=== PATIENT | female | born 1990 | race Hispanic/Latino ===

== ENCOUNTER 2017-03-11 20:06 | Observation (INO) | payer OTHER ==
[2017-03-11 20:13] VITALS: BP 118/82; PULSE 102; RESP 16; TEMP 97.8; O2SAT 98
--- NOTE | 2017-03-11 20:15 | ED PDOC ---
HPI: Abdomen Time Seen by Provider: 03/11/17 20:14 Chief Complaint (Nursing): Abdominal Pain Chief Complaint (Provider): abdominal pain History Per: Patient Additional Complaint(s): 26 year old female presents to ED with generalized abdominal pain nausea, vomiting and diarrhea that started shortly after she ate shrimp jimmie [facility]. Patient has had multiple episodes of vomiting and diarrhea and she states she cannot keep down any liquids or solids. Patient states abdominal pain is 8/10. Past Medical History Reviewed: Historical Data, Nursing Documentation, Vital Signs Vital Signs: Last Vital Signs Temp 97.8 F 03/11/17 20:11 Pulse 102 H 03/11/17 20:11 Resp 16 03/11/17 20:11 BP 118/82 03/11/17 20:11 Pulse Ox 98 03/12/17 04:29 - Medical History PMH: Asthma, Migraine - Surgical History Other surgeries: D&C - Family History Family History: States: CAD (mother ) - Living Arrangements Living Arrangements: With Family - Social History Current smoker - smoking cessation education provided: Yes Alcohol: Social Drugs: Denies - Home Medications Home Medications: Ambulatory Orders Medication Instructions Recorded Albuterol Sulfate [Albuterol Hfa] 0.09 mg IH PRN 11/24/14 MedroxyPROGESTERone [Depo-Provera] mg IM 11/24/14 Cyclobenzaprine [Flexeril] 5 mg PO BID #10 tab 12/10/16 Naproxen 500 mg PO BID #20 tab 12/10/16 Dicyclomine [Bentyl] 10 mg PO QID PRN #15 cap 03/12/17 Ondansetron [Zofran Odt] 4 mg PO ASDIR PRN #15 odt 03/12/17 - Allergies Allergies/Adverse Reactions: Allergies Allergy/AdvReac Type Severity Reaction Status Date / Time nifedipine Allergy SWELLING Verified 12/10/16 00:15 Review of Systems ROS Statement: Except As Marked, All Systems Reviewed And Found Negative Constitutional: Negative for: Fever, Chills Cardiovascular: Negative for: Chest Pain Respiratory: Negative for: Cough Gastrointestinal: Positive for: Nausea, Vomiting, Abdominal Pain, Diarrhea. Negative for: Constipation, Melena, Hematochezia, Hematemesis, Rectal Pain Genitourinary Female: Negative for: Dysuria Physical Exam - Reviewed Nursing Documentation Reviewed: Yes Vital Signs Reviewed: Yes - Physical Exam Appears: Positive for: Well, Non-toxic, No Acute Distress Skin: Negative for: Rash Eye Exam: Positive for: Normal appearance, EOMI, PERRL ENT: Positive for: Other (dry oral mucosa) Cardiovascular/Chest: Positive for: Regular Rate, Rhythm Respiratory: Positive for: Normal Breath Sounds Gastrointestinal/Abdominal: Positive for: Soft, Tenderness (diffuse tenderness in all 4 quadrants). Negative for: Distended, Guarding, Rebound Back: Negative for: L CVA Tenderness, R CVA Tenderness Extremity: Negative for: Pedal Edema Neurologic/Psych: Positive for: Alert, Oriented - Laboratory Results Result Diagrams: 03/11/17 21:40 03/11/17 21:40 Urine POC: Negative Urine dip results: Positive for: Blood. Negative for: Leukocyte Esterase, Nitrate, Ketones, Glucose, Bilirubin, Protein - ECG O2 Sat by Pulse Oximetry: 98 Pulse Ox Interpretation: Normal - Other Rad CT abd and pelvis with IV and oral contrast X-Ray: Read By Radiologist X-Ray Interpretation: see below TV US X-Ray: Read By Radiologist X-Ray Interpretation: see below Medical Decision Making Medical Decision Makin:30 - 26-year-old female with vomiting and diarrhea. Plan: CBC CMP Urine and dip Lipase IVF IV zofran IV toradol IV pepcid CT abd and pelvis with oral and IV contrast CT: FINDINGS: Lower thorax: Minimal atelectasis. Few subpleural pulmonary nodules and/or scarring, up to 0.3 cm. ABDOMEN: Liver: 1.0 x 1.1 x 1.1 cm enhancing lesion versus artifact within LEFT lobe. Gallbladder and bile ducts: No calcified stones. No ductal dilation. Pancreas: No ductal dilation. No mass. Spleen: No splenomegaly. Adrenals: No mass. Kidneys and ureters: No mass. No hydronephrosis. Stomach and bowel: Mild mural thickening versus underdistention of gastric antrum. No definite bowel wall thickening. No obstruction. Appendix: Normal caliber. No inflammation. PELVIS: Bladder: Unremarkable. Reproductive: 3.2 x 2.8 x 2.9 cm hypodense lesion within LEFT ovary. IUD with arms extending beyond margin of uterus. ABDOMEN and PELVIS: Intraperitoneal space: No significant fluid collection. No free air. Bones/joints: No acute fracture. Soft tissues: Tiny umbilical hernia containing fat. Vasculature: Unremarkable. No aneurysm. Lymph nodes: No pathologically enlarged lymph nodes. IMPRESSION: 1. IUD with perforation. 2. Probable LEFT ovarian cyst. Consider ultrasound. 3. Possible liver lesion. Recommend nonemergent MRI. 4. Pulmonary nodules. For low-risk patients, no follow-up is necessary. For high-risk patients (smoking history or other known risk factors) recommend CT at 12 months and if unchanged , no further follow-up. 5. Incidental/non-acute findings are described above. Thank you for allowing us to participate in the care of your patient. Patient feels much better after returning from CAT scan, she is tolerating ice chips and states that pain and nausea have resolved. Patient aware of above CT findings. Transvaginal ultrasound ordered for further evaluation of IUD. Patient states IUD was placed in July of [address] Mejia at [facility]. Since placement of IUD patient has not had any severe persistent pain although in the past 2 weeks she reports mild pelvic discomfort with vaginal spotting. She states she is not currently sexually active and has not been in over 1 year. Patient states she has not had regular menses for the past 5-6 years and she usually has intermittent spotting. She denies any profuse bleeding. US: FINDINGS: Uterus/cervix: Uterus measures 7.0 x 4.6 x 4.7 cm in size. No myometrial mass. Endometrium: 0.4 cm in thickness. IUD partially visualized within canal. Right ovary: 2.2 x 1.3 x 1.8 cm in size. No mass. Normal flow. Left ovary: 3.7 x 2.5 x 3.1 cm in size. 3.2 x 2.2 x 2.4 cm anechoic lesion. Normal flow. Free fluid: No significant free fluid. Bladder: Empty bladder which cannot be evaluated with this probe. IMPRESSION: 1. LEFT ovarian cyst. 2. IUD. See CT report. 3. Incidental/non-acute findings are described above. Above results were discussed with Dr. Jackson, CARDIOVASCULAR RN marine equipment preservation inspector who asked that CT and US are reviewed by v-rad again for clarification. I had extensive conversation with v-rad radiologist regarding read and relayed this information to Dr. Jackson. He states that since patient does not have any acute pain or distention, she can follow up as outpatient with her development technician. Upon re-examination of patient, abdomen remains non-tender, no rebound or guarding. Patient was advised to take tylenol pain and to follow up BEAU with her development technician. Copy of CT and US reports given to patient. Other incidental findings were also discussed with patient and she was instructed to follow up with PMD for these findings. Patient was able to tolerate juice and sandwich in ED with no further emesis. She states she feels better. Rx bentyl and zofran given. Advised fluids, rest and follow up with PMD in 1-2 days. Patient is aware she can RTED at any time if acutely worse. Disposition - Clinical Impression Clinical Impression: Gastroenteritis, IUD complication - Patient ED Disposition Is Patient to be Admitted: No Counseled Patient/Family Regarding: Studies Performed, Diagnosis, Need For Followup, Rx Given - Disposition Disposition: Routine/Home Disposition Time: 04:28 Condition: STABLE Results - Lab Results Lab Results: 03/11/17 03/11/17 21:40 21:40 WBC 21.0 H D RBC 4.80 Hgb 14.7 Hct 43.5 MCV 90.7 D MCH 30.6 MCHC 33.7 RDW 12.7 Plt Count 279 MPV 8.6 Neut % (Auto) 82.1 H Lymph % (Auto) 11.6 L [place] % (Auto) 5.8 Eos % (Auto) 0.3 Baso % (Auto) 0.2 Neut # 17.2 H Lymph # 2.4 [place] # 1.2 H Eos # 0.1 Baso # 0.0 Sodium 142 Potassium 3.5 L Chloride 106 Carbon Dioxide 23 Anion Gap 17 BUN 12 Creatinine 0.7 Est GFR ( Amer) > 60 Est GFR (Non-Af Amer) > 60 Random Glucose 88 Calcium 9.7 Total Bilirubin 0.6 AST 36 ALT 42 Alkaline Phosphatase 82 Total Protein 8.5 H Albumin 5.0 Globulin 3.5 Albumin/Globulin Ratio 1.4 Lipase 101
[2017-03-11] MEDS ORDERED: Sodium Chloride 0.9% 1,000 ML IV STA (20:31)
[2017-03-11 21:50] LABS: BASO % 0.2 % (0.0-2.0); EOS # 0.1 K/uL (0.0-0.7); EOS % 0.3 % (0.0-4.0); HEMATOCRIT 43.5 % (34.0-47.0); LYMPH # 2.4 K/uL (1.0-4.3); LYMPH % 11.6 % (20.0-40.0); MEAN CELL VOLUME 90.7 fl (81.0-99.0); MEAN CORPUSCULAR HEMOGLOBIN 30.6 pg (27.0-31.0); MEAN CORPUSCULAR HGB CONC 33.7 g/dL (33.0-37.0); MEAN PLATELET VOLUME 8.6 fl (7.2-11.7); MONO # 1.2 K/uL (0.0-0.8); MONO % 5.8 % (0.0-10.0); NEUT # 17.2 K/uL (1.8-7.0); NEUT % 82.1 % (50.0-75.0); RED CELL DISTRIBUTION WIDTH 12.7 % (11.5-14.5)
[2017-03-11 22:03] LABS: ALB/GLOB RATIO 1.4 (1.0-2.1); ALKALINE PHOSPHATASE 82 U/L (38-126); ALT/SGPT 42 U/L (9-52); AST/SGOT 36 U/L (14-36); BILIRUBIN,TOTAL 0.6 mg/dl (0.2-1.3); BLOOD UREA NITROGEN 12 mg/dl (7-17); CALCIUM 9.7 mg/dL (8.4-10.2); CARBON DIOXIDE 23 mmol/L (22-30); CHLORIDE 106 mmol/L (98-107); GFR AFRICAN-AMERICAN > 60; GLUCOSE,RANDOM 88 mg/dL (65-105); LIPASE 101 U/L (23-300); POTASSIUM 3.5 MMOL/L (3.6-5.0); SODIUM 142 mmol/l (132-148); TOTAL PROTEIN 8.5 G/DL (6.3-8.2)
[2017-03-11] MEDS ORDERED: Iohexol 240 (50 ml) PO STA (22:05)
[2017-03-11] MEDS ORDERED: Iohexol 240 (50 ml) ONE (22:11)
[2017-03-12] MEDS ORDERED: Sodium Chloride 0.9% 50 ML IV ONE (00:24)
[2017-03-12] MEDS ORDERED: Iohexol 300 50 ML ONE (00:24)
--- NOTE | 2017-03-12 01:30 | CT ---
EXAM: CT Abdomen and Pelvis With Intravenous Contrast CLINICAL HISTORY: 26 years old, female; Pain; Abdominal pain; Generalized; Additional info: Abdominal pain, vomiting, diarrhea TECHNIQUE: Axial computed tomography images of the abdomen and pelvis with intravenous contrast. This CT exam was performed using one or more of the following dose reduction techniques: automated exposure control, adjustment of the mA and/or kV according to patient size, and/or use of iterative reconstruction technique. Coronal and sagittal reformatted images were created and reviewed. CONTRAST: 94 mL of [id number] administered intravenously. COMPARISON: No relevant prior studies available. FINDINGS: Lower thorax: Minimal atelectasis. Few subpleural pulmonary nodules and/or scarring, up to 0.3 cm. ABDOMEN: Liver: 1.0 x 1.1 x 1.1 cm enhancing lesion versus artifact within LEFT lobe. Gallbladder and bile ducts: No calcified stones. No ductal dilation. Pancreas: No ductal dilation. No mass. Spleen: No splenomegaly. Adrenals: No mass. Kidneys and ureters: No mass. No hydronephrosis. Stomach and bowel: Mild mural thickening versus underdistention of gastric antrum. No definite bowel wall thickening. No obstruction. Appendix: Normal caliber. No inflammation. PELVIS: Bladder: Unremarkable. Reproductive: 3.2 x 2.8 x 2.9 cm hypodense lesion within LEFT ovary. IUD with arms extending beyond margin of uterus. ABDOMEN and PELVIS: Intraperitoneal space: No significant fluid collection. No free air. Bones/joints: No acute fracture. Soft tissues: Tiny umbilical hernia containing fat. Vasculature: Unremarkable. No aneurysm. Lymph nodes: No pathologically enlarged lymph nodes. IMPRESSION: 1. IUD with perforation. 2. Probable LEFT ovarian cyst. Consider ultrasound. 3. Possible liver lesion. Recommend nonemergent MRI. 4. Pulmonary nodules. For low-risk patients, no follow-up is necessary. For high-risk patients (smoking history or other known risk factors) recommend CT at 12 months and if unchanged, no further follow-up. 5. Incidental/non-acute findings are described above.
--- NOTE | 2017-03-12 03:19 | US ---
EXAM: US Pelvis, Transvaginal CLINICAL HISTORY: 26 years old, female; Screening exam; Assess iud TECHNIQUE: Real-time transvaginal pelvic ultrasound (complete) with image documentation. Transvaginal imaging was used for better evaluation of the endometrium and adnexa. COMPARISON: CT - ABD PELVIS PO IV CONTRAST 03/12/2017 12:41:10 AM FINDINGS: Uterus/cervix: Uterus measures 7.0 x 4.6 x 4.7 cm in size. No myometrial mass. Endometrium: 0.4 cm in thickness. IUD partially visualized within canal. Right ovary: 2.2 x 1.3 x 1.8 cm in size. No mass. Normal flow. Left ovary: 3.7 x 2.5 x 3.1 cm in size. 3.2 x 2.2 x 2.4 cm anechoic lesion. Normal flow. Free fluid: No significant free fluid. Bladder: Empty bladder which cannot be evaluated with this probe. IMPRESSION: 1. LEFT ovarian cyst. 2. IUD. See CT report. 3. Incidental/non-acute findings are described above.
== END 2017-03-12 04:58 | disposition home or self-care (01) ==
LOC: H.ER 20:06 → H.EROBSV 03-12 03:25
PROVIDERS: ADMIT Emergency Medicine; ATTEND Emergency Medicine
DX: K52.9 Noninfective gastroenteritis and colitis, unspecified (principal); F17.200 Nicotine dependence, unspecified, uncomplicated; J45.909 Unspecified asthma, uncomplicated; G43.909 Migraine, unspecified, not intractable, without status migrainosus; T83.9XXA Unspecified complication of genitourinary prosthetic device, implant and graft, initial encounter; Y83.1 Surgical operation with implant of artificial internal device as the cause of abnormal reaction of the patient, or of later complication, without mention of misadventure at the time of the procedure; N83.202 Unspecified ovarian cyst, left side

== ENCOUNTER 2017-03-13 11:06 | Observation (INO) | payer OTHER ==
[2017-03-13 11:34] VITALS: BMI 30.4
--- NOTE | 2017-03-13 11:37 | ED PDOC ---
HPI: Abdomen Time Seen by Provider: 03/13/17 11:19 Chief Complaint (Provider): Abdominal Pain History Per: Patient Additional Complaint(s): 26 yo female, No PMH, presents to ED with complaints of continued lower abdominal pain since Monday. Pt seen and evaluated here in the ED on 03/12 and was found to have an IUD with perforation. Pt was discharged in stable condition and was advised to follow up outpt OB. Pt tearful and upset, wants IUD removed. Pt contacted her OB, Dr. Restrepo, and was advised to return to ED at this time. Chart review from 03/12: CT: FINDINGS: Lower thorax: Minimal atelectasis. Few subpleural pulmonary nodules and/or scarring, up to 0.3 cm. ABDOMEN: Liver: 1.0 x 1.1 x 1.1 cm enhancing lesion versus artifact within LEFT lobe. Gallbladder and bile ducts: No calcified stones. No ductal dilation. Pancreas: No ductal dilation. No mass. Spleen: No splenomegaly. Adrenals: No mass. Kidneys and ureters: No mass. No hydronephrosis. Stomach and bowel: Mild mural thickening versus underdistention of gastric antrum. No definite bowel wall thickening. No obstruction. Appendix: Normal caliber. No inflammation. PELVIS: Bladder: Unremarkable. Reproductive: 3.2 x 2.8 x 2.9 cm hypodense lesion within LEFT ovary. IUD with arms extending beyond margin of uterus. ABDOMEN and PELVIS: Intraperitoneal space: No significant fluid collection. No free air. Bones/joints: No acute fracture. Soft tissues: Tiny umbilical hernia containing fat. Vasculature: Unremarkable. No aneurysm. Lymph nodes: No pathologically enlarged lymph nodes. IMPRESSION: 1. IUD with perforation. 2. Probable LEFT ovarian cyst. Consider ultrasound. 3. Possible liver lesion. Recommend nonemergent MRI. 4. Pulmonary nodules. For low-risk patients, no follow-up is necessary. For high-risk patients (smoking history or other known risk factors) recommend CT at 12 months and if unchanged , no further follow-up. 5. Incidental/non-acute findings are described above. Thank you for allowing us to participate in the care of your patient. Patient feels much better after returning from CAT scan, she is tolerating ice chips and states that pain and nausea have resolved. Patient aware of above CT findings. Transvaginal ultrasound ordered for further evaluation of IUD. Patient states IUD was placed in July of [address] Mejia at [facility]. Since placement of IUD patient has not had any severe persistent pain although in the past 2 weeks she reports mild pelvic discomfort with vaginal spotting. She states she is not currently sexually active and has not been in over 1 year. Patient states she has not had regular menses for the past 5-6 years and she usually has intermittent spotting. She denies any profuse bleeding. US: FINDINGS: Uterus/cervix: Uterus measures 7.0 x 4.6 x 4.7 cm in size. No myometrial mass. Endometrium: 0.4 cm in thickness. IUD partially visualized within canal. Right ovary: 2.2 x 1.3 x 1.8 cm in size. No mass. Normal flow. Left ovary: 3.7 x 2.5 x 3.1 cm in size. 3.2 x 2.2 x 2.4 cm anechoic lesion. Normal flow. Free fluid: No significant free fluid. Bladder: Empty bladder which cannot be evaluated with this probe. IMPRESSION: 1. LEFT ovarian cyst. 2. IUD. See CT report. 3. Incidental/non-acute findings are described above. Above results were discussed with Dr. Jackson, WRIST HEMMER refrigeration unit repairer who asked that CT and US are reviewed by v-rad again for clarification. I had extensive conversation with v-rad radiologist regarding read and relayed this information to Dr. aJckson. He states that since patient does not have any acute pain or distention, she can follow up as outpatient with her ornamental ironworker helper. Upon re-examination of patient, abdomen remains non-tender, no rebound or guarding. Patient was advised to take tylenol pain and to follow up BEAU with her ornamental ironworker helper. Copy of CT and US reports given to patient. Other incidental findings were also discussed with patient and she was instructed to follow up with PMD for these findings. Patient was able to tolerate juice and sandwich in ED with no further emesis. She states she feels better. Rx bentyl and zofran given. Advised fluids, rest and follow up with PMD in 1-2 days. Patient is aware she can RTED at any time if acutely worse. Past Medical History Reviewed: Nursing Documentation, Vital Signs Vital Signs: Last Vital Signs Temp 97 F L 03/13/17 11:39 Pulse 84 03/13/17 11:39 Resp 18 03/13/17 11:39 BP 139/83 03/13/17 11:39 Pulse Ox 100 03/13/17 11:39 - Medical History PMH: Asthma, Migraine - Surgical History Surgical History: No Surg Hx - Family History Family History: States: CAD (mother ) - Living Arrangements Living Arrangements: With Family - Social History Current smoker - smoking cessation education provided: No Alcohol: None Drugs: Denies - Home Medications Home Medications: Ambulatory Orders Medication Instructions Recorded Albuterol Sulfate [Albuterol Hfa] 0.09 mg IH PRN 11/24/14 MedroxyPROGESTERone [Depo-Provera] mg IM 11/24/14 Cyclobenzaprine [Flexeril] 5 mg PO BID #10 tab 12/10/16 Naproxen 500 mg PO BID #20 tab 12/10/16 Dicyclomine [Bentyl] 10 mg PO QID PRN #15 cap 03/12/17 Ondansetron [Zofran Odt] 4 mg PO ASDIR PRN #15 odt 03/12/17 - Allergies Allergies/Adverse Reactions: Allergies Allergy/AdvReac Type Severity Reaction Status Date / Time nifedipine Allergy SWELLING Verified 03/13/17 11:36 Review of Systems ROS Statement: Except As Marked, All Systems Reviewed And Found Negative Gastrointestinal: Positive for: Abdominal Pain Physical Exam - Reviewed Nursing Documentation Reviewed: Yes Vital Signs Reviewed: Yes - Physical Exam Appears: Positive for: Well, Non-toxic, No Acute Distress Head Exam: Positive for: ATRAUMATIC, NORMAL INSPECTION, NORMOCEPHALIC Skin: Positive for: Normal Color, Warm, DRY Eye Exam: Positive for: EOMI, Normal appearance, PERRL ENT: Positive for: Normal ENT Inspection Neck: Positive for: Normal, Painless ROM Cardiovascular/Chest: Positive for: Regular Rate, Rhythm Respiratory: Positive for: CNT, Normal Breath Sounds Gastrointestinal/Abdominal: Positive for: Normal Exam, Bowel Sounds, Soft Back: Positive for: Normal Inspection Extremity: Positive for: Normal ROM Neurologic/Psych: Positive for: Alert, Oriented - Laboratory Results Result Diagrams: 03/13/17 12:00 03/13/17 12:00 Medical Decision Making Medical Decision Making: Case discussed with Dr. Mjeia who presented to see and evaluate pt at bedside. Obs-MS arranged at this time. Pt to likely go to OR later today. Pt last ate around 9-10 am, a bagel and soda. Disposition - Clinical Impression Clinical Impression: IUD complication - Patient ED Disposition Is Patient to be Admitted: Yes - Disposition Disposition Time: 12:43 Condition: STABLE - Pt Status Changed To: Hospital Disposition Of: Observation - POA Present On Arrival: None
[2017-03-13 11:58] LABS: URINE BACTERIA OCC (<OCC); URINE BILIRUBIN NEGATIVE (NEGATIVE); URINE COLOR AMBER (YELLOW); URINE GLUCOSE (UA) NEG (Normal); URINE KETONE NEGATIVE (NEGATIVE); URINE LEUKOCYTE ESTERASE MOD Leu/uL (Negative); URINE PROTEIN 30 mg/dL (NEGATIVE); URINE UROBILINOGEN 0.2-1.0 mg/dL (0.2-1.0); WBC URINE 7 /hpf (0-5)
[2017-03-13 11:59] LABS: URINE BLOOD TRACE (NEGATIVE)
[2017-03-13 12:13] LABS: BASO # 0.1 K/uL (0.0-0.2); BASO % 1.3 % (0.0-2.0); EOS # 0.1 K/uL (0.0-0.7); EOS % 1.2 % (0.0-4.0); HEMATOCRIT 38.9 % (34.0-47.0); LYMPH # 2.5 K/uL (1.0-4.3); LYMPH % 26.6 % (20.0-40.0); MEAN CELL VOLUME 91.2 fl (81.0-99.0); MEAN CORPUSCULAR HEMOGLOBIN 30.8 pg (27.0-31.0); MEAN CORPUSCULAR HGB CONC 33.8 g/dL (33.0-37.0); MEAN PLATELET VOLUME 7.9 fl (7.2-11.7); MONO # 0.8 K/uL (0.0-0.8); MONO % 8.1 % (0.0-10.0); NEUT # 5.8 K/uL (1.8-7.0); NEUT % 62.8 % (50.0-75.0); RED CELL DISTRIBUTION WIDTH 12.7 % (11.5-14.5); WHITE BLOOD COUNT 9.2 K/uL (4.8-10.8)
[2017-03-13 12:22] LABS: ALB/GLOB RATIO 1.5 (1.0-2.1); ALKALINE PHOSPHATASE 72 U/L (38-126); ALT/SGPT 37 U/L (9-52); AST/SGOT 26 U/L (14-36); BILIRUBIN,TOTAL 0.5 mg/dl (0.2-1.3); BLOOD UREA NITROGEN 6 mg/dl (7-17); CALCIUM 8.7 mg/dL (8.4-10.2); CARBON DIOXIDE 25 mmol/L (22-30); CHLORIDE 105 mmol/L (98-107); GFR AFRICAN-AMERICAN > 60; GLUCOSE,RANDOM 87 mg/dL (65-105); POTASSIUM 3.5 MMOL/L (3.6-5.0); SODIUM 140 mmol/l (132-148); TOTAL PROTEIN 7.5 G/DL (6.3-8.2)
[2017-03-13] MEDS ORDERED: Lactated Ringer's 1,000 ML IV SCH (13:00)
--- NOTE | 2017-03-13 14:59 | CP.SDSHP ---
Same Day Surgery H & P - History Proposed Procedure: hysteroscopy and diagnostic laparoscopy for removal of IUD Pre-Op Diagnosis: perforated/embedded IUD - Allergies Allergies: Allergies nifedipine Allergy (Verified 03/13/17 11:36) SWELLING - Physical Exam Vital Signs: Vital Signs 03/13/17 03/13/17 13:38 14:20 Temperature 97.9 F Pulse Rate 80 64 Respiratory 18 Rate Blood Pressure 122/78 O2 Sat by Pulse 100 Oximetry Neuro: WNL Heart: WNL Lungs: WNL - {Optional Preform as Required} Abdomen: WNL COOK FISH EGGS: WNL - Impression Pt. Evaluated Today:Candidate for Anesthesia & Procedure: Yes - Date & Time Date: 03/13/17 Time: 14:59 Short Stay Discharge - Short Stay Discharge Admitting Diagnosis/Reason for Visit: IUD REMOVAL Disposition: HOME/ ROUTINE Follow-up: f/u in the office in 1-2 wks
[2017-03-13] MEDS ORDERED: Strong Iodine Topical Sol. 5%-10% ONE (15:02)
[2017-03-13] MEDS ORDERED: Ferric Subsulfate Sol(60 mL) ONE (15:02)
[2017-03-13] MEDS ORDERED: Propofol 10 mg/ml Inj (20 ML) ONE (15:09)
[2017-03-13] MEDS ORDERED: Midazolam 2 MG/2 ML VIAL ONE (15:09)
[2017-03-13] MEDS ORDERED: Lidocaine 4% (Laryng-O-Jet) Kit MM ONE (15:09)
[2017-03-13] MEDS ORDERED: Succinylcholine 200 mg/10 ml Inj IV ONE (15:09)
[2017-03-13] MEDS ORDERED: Lidocaine 1% Inj (20ml) ONE (15:10)
[2017-03-13] MEDS ORDERED: Bupivacaine 0.5% Inj(30mL) ONE (15:10)
[2017-03-13] MEDS ORDERED: Rocuronium 10 mg/ml (5 ml) ONE (15:10)
[2017-03-13] MEDS ORDERED: Lactated Ringer's 1,000 ML IV ONE (15:37)
[2017-03-13] MEDS ORDERED: Doxycycline 100 mg Inj IVPB ONE (15:50)
[2017-03-13] MEDS ORDERED: Neostigmine Methylsulfate 3mg/3ml Syringe IV ONE (16:04)
[2017-03-13] MEDS ORDERED: HYDROmorphone 0.5 mg/0.5 ml ISec IVP PRN (16:27)
[2017-03-13] MEDS ORDERED: Oxycodone/Acetaminophen 5/325 mg Tab PO PRN (16:39)
[2017-03-13 18:30] LABS: HEMATOCRIT 35.9 % (34.0-47.0)
[2017-03-13 19:50] VITALS: BP 130/67; PULSE 79; RESP 18; TEMP 98.1; O2SAT 96
--- NOTE | 2017-03-17 14:00 | OP ---
PROCEDURE DATE: 03/13/2017 SURGEON: Dr. Wendi Mejia. PREOPERATIVE DIAGNOSIS: Retained intrauterine device. FINDINGS: Mirena IUD easily removed in entirety. POSTOPERATIVE DIAGNOSIS: Retained intrauterine device. ESTIMATED BLOOD LOSS: None. COMPLICATIONS: None. ANESTHESIA: General by Dr. Toth. FLUID DEFICIT: 300 mL of normal saline. URINE OUTPUT: 100 mL, clear. PATHOLOGY SPECIMEN: IUD. CONDITION: Stable. INDICATIONS: This is a 26-year-old -0-2-1 who had presented to the Emergency Room over the week end with nausea, vomiting, diarrhea most likely in relationship to food poisoning, The patient had a full workup done and at that time, was found to have an IUD that looked to possibly be embedded into the uterine wall. The patient had had the IUD inserted 9 months prior, had denied any pain, fevers, abnormal signs and symptoms. The patient was stable following her workup for possible gastroenteri tis secondary to food poisoning, was afebrile, had no abdominal pain and was told to follow up as an outpatient. The patient then called the office 2 days after having some abdominal discomfort and the doctor in the office referred the patient to the Emergency Room based on her CAT scan findings over the weekend. The patient was evaluated by me in the ER. White count was 9, afebrile generalized abd ominal cramping on and off. Otherwise, physically stable. It was determined at this point, based on the CAT scan findings, to remove the IUD. It looked to be either embedded or possibly perforated. The patient was consented for IUD removal, hysteroscopy and possible diagnostic laparoscopy as well. The patient verbalized understanding of all risks of the procedure and signed informed consent. DESCRIPTION OF PROCEDURE: The patient was taken to the OR. Doxycycline was given preoperatively for prophylaxis. IV fluids were running adequately. The patient was given general anesthesia without d ifficulty, prepped and draped in the normal sterile fashion, legs in Gerson type stirrups. Barajas was inserted and was draining clear urine. The weighted speculum was placed in the posterior fornix and a Crowder was used to aid with visualization of the anterior lip of the cervix. It was clearly seen t hat the strings were visualized. Ring forceps were used to grasp the IUD strings which then we were able to remove the IUD without any difficulty. At this point, we decided to examine the patient with hysteroscope to look for any defects or any bleeding. The patient was dilated with the Hegar dilato rs to allow for a 5 mm hysteroscope to be inserted. Normal saline was used as the medium. The hyste roscope was inserted without difficulty. Clearly, the ostia were noted on each side and next to the right ostia, there was a small defect that was noted about the size of the ostia. It was not bleedin g at this time. There were no other masses or evidence of pathology or bleeding noted in the uterine cavity. Multiple pictures were obtained. The pressure was reduced in the uterine cavity and there was no bleeding noted as well. The hysteroscope was then removed. All instruments were removed from the vagina. It was noted that the patient was having no bleeding from the cervix. At this point, paula leavitt decided to terminate the case as the patient appeared stable and the defect also appeared stable. The patient was cleaned and awoken out of anesthesia without difficulty. The IUD was not sent to [facility] as it was intact and known to be a Mirena. The patient was taken to PACU and then to the [facility] for observation where a repeat hemoglobin was found to be stable. The patient started at a hemoglo bin of 13 and after the procedure, the patient's hemoglobin was 11.9. The deficit from the case was 300 mL of normal saline. The patient was also having no complaints. After being observed for a few hours, she was discharged home with instructions to follow up as an outpatient in the office in 1-2 w [facility]. There were no other complications of this procedure. Wendi Mejia MD cc: [id number] TT: 03/17/2017 13:59:49 tn
== END 2017-03-13 20:40 | disposition home or self-care (01) ==
LOC: H.ER 11:06 → H.ERHOLD 12:31 → H.MEDSURG1 18:18
PROVIDERS: ADMIT Obstetrics & Gynecology; ATTEND Obstetrics & Gynecology
DX: Z30.432 Encounter for removal of intrauterine contraceptive device (principal); J45.909 Unspecified asthma, uncomplicated; G43.909 Migraine, unspecified, not intractable, without status migrainosus

== ENCOUNTER 2018-10-05 02:55 | Emergency (ER) | payer OTHER ==
[2018-10-05 03:35] VITALS: BMI 34.0
[2018-10-05] MEDS ORDERED: Albuterol-Ipratrop 3 mg / 0.5 (3 ml) UD INH STA (04:04)
[2018-10-05] MEDS ORDERED: Albuterol-Ipratrop 3 mg / 0.5 (3 ml) UD ONE (04:35)
--- NOTE | 2018-10-05 04:45 | ED PDOC ---
HPI: SOB/CHF/COPD Time Seen by Provider: 10/05/18 03:46 Chief Complaint (Nursing): Shortness Of Breath Chief Complaint (Provider): Shortness Of Breath History Per: Patient History/Exam Limitations: no limitations Onset/Duration Of Symptoms: Sudden Onset Current Symptoms Are (Timing): Better Additional Complaint(s): 28 year old female presents to ED with sudden onset of difficulty breathing and chest tightness prior to arrival. Patient states she woke up with symptoms and felt that she could not get a full breath. She used her inhaler with little to no relief. Additionally, she reports numbness and tingling sensation to her hands and lower extremities. At present, she reports feeling better upon arrival to ED. PCP: Dr. Do Retana in [place] Past Medical History Reviewed: Historical Data, Nursing Documentation, Vital Signs Vital Signs: Last Vital Signs Temp 97.5 F L 10/05/18 03:10 Pulse 73 10/05/18 03:10 Resp 14 10/05/18 03:54 BP 144/94 H 10/05/18 03:10 Pulse Ox 98 10/05/18 03:54 - Medical History PMH: Asthma, Migraine Denies: Chronic Kidney Disease - Family History Family History: States: CAD (mother ) - Social History Current smoker - smoking cessation education provided: Yes - Home Medications Home Medications: Ambulatory Orders Medication Instructions Recorded Dicyclomine [Bentyl] 10 mg PO QID PRN #15 cap 03/12/17 Ondansetron [Zofran Odt] 4 mg PO ASDIR PRN #15 odt 03/12/17 Lactobacillus Combination No.8 1 cap PO DAILY 03/13/17 [Adult Probiotic] Levocetirizine Dihydrochloride 5 mg PO DAILY 03/13/17 [Xyzal] Multivitamin [Multi-Vitamin Daily] 1 tab PO DAILY 03/13/17 Crowley-3 Fatty Acids [Crowley-3] 2 gm PO BID 03/13/17 Omeprazole 40 mg PO DAILY 03/13/17 Ubidecarenone [Coenzyme Q10] 300 mg PO DAILY 03/13/17 - Allergies Allergies/Adverse Reactions: Allergies Allergy/AdvReac Type Severity Reaction Status Date / Time nifedipine Allergy SWELLING Verified 10/05/18 03:35 Review of Systems Cardiovascular: Positive for: Chest Pain (tightness) Respiratory: Positive for: Shortness of Breath Neurological: Positive for: Numbness (and tingling sensation of bilateral upper/lower extremities) Physical Exam - Reviewed Nursing Documentation Reviewed: Yes Vital Signs Reviewed: Yes - Physical Exam Appears: Positive for: Non-toxic, No Acute Distress Head Exam: Positive for: ATRAUMATIC, NORMAL INSPECTION, NORMOCEPHALIC Skin: Positive for: Normal Color Eye Exam: Positive for: Normal appearance ENT: Positive for: Normal ENT Inspection Neck: Positive for: Normal, Painless ROM, Supple Cardiovascular/Chest: Positive for: Regular Rate, Rhythm, Chest Non Tender Respiratory: Positive for: Normal Breath Sounds. Negative for: Wheezing, Respiratory Distress Gastrointestinal/Abdominal: Positive for: Normal Exam Back: Positive for: Normal Inspection Extremity: Positive for: Normal ROM (upper/lower). Negative for: Pedal Edema Neurologic/Psych: Positive for: Alert, Oriented. Negative for: Motor/Sensory Deficits - Laboratory Results Result Diagrams: 10/05/18 04:29 10/05/18 04:29 Urine POC: Negative - ECG O2 Sat by Pulse Oximetry: 98 (RA) Pulse Ox Interpretation: Normal Medical Decision Making Medical Decision Making: Initial Impression: 28 year old female with acute dyspnea Initial Plan: * CTA chest * Labs with d dimer * Duoneb 3ml INH Time: 06 --CTA chest FINDINGS: Normal enhancement of the main pulmonary artery and right and left pulmonary arteries. Normal enhancement of the bilateral peripheral pulmonary arteries. There is no demonstrated pulmonary embolism. Normal thoracic aorta and visualized great vessels. There is no demonstrated aortic dissection. Normal heart and pericardium. Normal mediastinum. Normal hilar regions. Normal visualized trachea and bronchi. The lungs are well expanded. Normal pulmonary parenchyma. Normal pleura. Normal chest wall structures. Normal osseous structures. Mild diffuse thickening of the gallbladder. IMPRESSION: No demonstrated pulmonary embolism or arterial dissection. Mild diffuse thickening of the gallbladder. Sonographic evaluation is suggested. Time: 06 --Labs reviewed: no significant clinical abnormality. Upon provider reevaluation, patient is medically stable and requires no further treatment in the ED at this time. Counseling was provided and all questions were answered regarding diagnosis. There is agreement to discharge plan. Return if symptoms persist or worsen. Clinical Impression: Anxiety Scribe Attestation: Documented by Nova Vazquez, acting as a scribe for Doni Tiwari MD. Provider Scribe Attestation: All medical record entries made by the Scribe were at my direction and personally dictated by me. I have reviewed the chart and agree that the record accurately reflects my personal performance of the history, physical exam, medical decision making, and the department course for this patient. I have also personally directed, reviewed, and agree with the discharge instructions and disposition. Disposition - Clinical Impression Clinical Impression: Anxiety - Patient ED Disposition Is Patient to be Admitted: No Counseled Patient/Family Regarding: Studies Performed, Diagnosis - Disposition Disposition: Routine/Home Disposition Time: 06:25 Condition: STABLE Instructions: Anxiety, Adult (DC) Forms: [employer] (Vietnamese)
[2018-10-05 05:00] LABS: ALB/GLOB RATIO 1.3 (1.0-2.1); ALBUMIN 4.1 g/dL (3.5-5.0); ALT/SGPT 37 U/L (9-52); AST/SGOT 25 U/L (14-36); BLOOD UREA NITROGEN 14 mg/dl (7-17); CALCIUM 9.4 mg/dL (8.4-10.2); GFR NON-AFRICAN AMERICAN > 60
[2018-10-05 05:02] LABS: BASO % 0.4 % (0.0-2.0); EOS # 0.1 K/uL (0.0-0.7); EOS % 0.6 % (0.0-4.0); HEMOGLOBIN 12.9 g/dL (12.0-16.0); LYMPH # 2.5 K/uL (1.0-4.3); LYMPH % 18.2 % (20.0-40.0); MEAN CELL VOLUME 88.9 fl (81.0-99.0); MEAN CORPUSCULAR HEMOGLOBIN 30.6 pg (27.0-31.0); MEAN CORPUSCULAR HGB CONC 34.4 g/dL (33.0-37.0); MEAN PLATELET VOLUME 7.9 fl (7.2-11.7); MONO # 0.9 K/uL (0.0-0.8); MONO % 6.5 % (0.0-10.0); NEUT # 10.3 K/uL (1.8-7.0); NEUT % 74.3 % (50.0-75.0); NRBC % 0.1 % (0.0-0.0); RBC 4.23 Mil/uL (3.80-5.20); RED CELL DISTRIBUTION WIDTH 12.2 % (11.5-14.5); WHITE BLOOD COUNT 13.9 K/uL (4.8-10.8)
[2018-10-05] MEDS ORDERED: Sodium Chloride 0.9% 50 ML IV ONE (05:16)
[2018-10-05] MEDS ORDERED: Iodixanol 320 MG/ML 100 ML BOTTLE IV ONE (05:16)
[2018-10-05 06:44] VITALS: BP 126/78; PULSE 68; RESP 18; TEMP 98.3; O2SAT 99
--- NOTE | 2018-10-05 09:26 | CT ---
Date of service: 10/05/2018 PROCEDURE: CT Chest with contrast (Pulmonary Angiogram) HISTORY: chest pain r/o PE COMPARISON: None available. TECHNIQUE: Axial computed tomography images were obtained of the chest in the pulmonary arterial phase of enhancement. Coronal and sagittal reformatted images were created and reviewed. Intravenous contrast dose: Visipaque 320, 95 cc Radiation dose: Total exam DLP = 314.17 mGy-cm. This CT exam was performed using one or more of the following dose reduction techniques: Automated exposure control, adjustment of the mA and/or kV according to patient size, and/or use of iterative reconstruction technique. FINDINGS: PULMONARY ARTERIES: Unremarkable. No pulmonary embolism. AORTA: No acute findings. No thoracic aortic aneurysm. No aortic atherosclerotic calcification or mural plaque present. LUNGS: Unremarkable. No nodule, mass or pulmonary consolidation. PLEURAL SPACES: Unremarkable. No effusion or pneumothorax. HEART: Unremarkable. No cardiomegaly. No significant pericardial effusion. LYMPH NODES: No lymphadenopathy. BONES, CHEST WALL: Unremarkable. No fracture or destructive lesion. OTHER FINDINGS: Unremarkable. IMPRESSION: Unremarkable CT pulmonary angiogram. No pulmonary embolus. Concordant preliminary report from [facility], 10/05/2018 6:07 a.m. regarding thoracic evaluation. Discordant regarding gallbladder comments.
== END 2018-10-05 06:43 | disposition home or self-care (01) ==
LOC: H.ER 02:55
DX: F41.9 Anxiety disorder, unspecified (principal); J44.9 Chronic obstructive pulmonary disease, unspecified; F17.200 Nicotine dependence, unspecified, uncomplicated
CPT/HCPCS: 71275; 80053; 81025; 85025; 85378; 94150; 94640; 96374; 99285; J1885; Q9967